=== PATIENT | male | born 1995 | race Caucasian/White ===

== ENCOUNTER 2020-03-30 13:50 | Emergency (ER) | payer OTHER ==
--- NOTE | 2020-03-30 13:52 | ED Physician Documentation ---
PD HPI CHEST PAIN - Stated complaint Stated Complaint: CHEST PX - History obtained from History obtained from: Patient - History of Present Illness Timing - onset: How many hours ago (06/01), Today Timing - onset during: Rest (The patient had been lingering in bed for the late morning and was just getting up at an hour and a half ago and had an onset of a brief sharp pain in the midsternal chest radiating to the back. Lasted several seconds and then went away. Occurred again a few minutes later. Now just a mild aching.) Timing - duration: Seconds Timing - details: Abrupt onset, Still present Quality: Aching, Sharp, Pain Location: Substernal Radiation: Back Associated symptoms: No: Shortness of air, Diaphoresis, Nausea, Feeling faint / dizzy Similar symptoms before: Has not had sx before Recently seen: Not recently seen Review of Systems Constitutional: denies: Fever, Chills Nose: denies: Rhinorrhea / runny nose, Congestion Throat: denies: Sore throat Respiratory: denies: Cough GI: denies: Nausea, Vomiting, Diarrhea Neurologic: denies: Focal weakness, Near syncope PD PAST MEDICAL HISTORY - Past Medical History Cardiovascular: None Respiratory: None Neuro: None Musculoskeletal: None - Present Medications Home Medications: Ambulatory Orders Medication Instructions Recorded Confirmed No Known Home Medications 03/30/20 03/30/20 - Allergies Allergies/Adverse Reactions: Allergies Allergy/AdvReac Type Severity Reaction Status Date / Time No Known Drug Allergies Allergy Verified 03/30/20 14:07 - Family History Family history: denies: CAD, Aortic aneursym, Aortic dissection PD ED PE NORMAL - Vitals Vital signs reviewed: Yes - General General: Alert and oriented X 3, No acute distress, Well developed/nourished - Neck Neck: Supple, no meningeal sign, No adenopathy - Cardiac Cardiac: RRR, No murmur - Respiratory Respiratory: Clear bilaterally, Other (no chestwall tenderness) - Abdomen Abdomen: Soft, Non tender - Derm Derm: Normal color, Warm and dry - Extremities Extremities: Normal ROM s pain, No edema, No calf tenderness / cord - Neuro Neuro: Alert and oriented X 3, No motor deficit, Normal speech Results - Vitals Vitals: Vital Signs - 24 hr 03/30/20 03/30/20 13:55 15:09 Temperature 36.5 C 37.0 C Heart Rate 97 80 Respiratory 18 18 Rate Blood Pressure 136/97 H 125/88 H O2 Saturation 100 100 Oxygen O2 Source Room air - EKG (time done) presentation Rhythm: NSR [place]: Normal Intervals: Normal PA QRS: Normal Ischemia: Normal ST segments. No: ST elevation c/w ischemia, ST depression - Labs Labs: Laboratory Tests 03/30/20 03/30/20 03/30/20 13:58 13:58 13:58 WBC 6.1 RBC 5.31 Hgb 16.2 Hct 45.4 MCV 85.5 MCH 30.5 MCHC 35.7 RDW 11.9 L Plt Count 326 MPV 9.0 Neut # (Auto) 3.8 Lymph # (Auto) 1.6 [place] # (Auto) 0.4 Eos # (Auto) 0.2 Baso # (Auto) 0.1 Absolute Nucleated RBC 0.00 Nucleated RBC % 0.0 Sodium 141 Potassium 4.1 Chloride 102 Carbon Dioxide 27 Anion Gap 12.0 BUN 13 Creatinine 1.1 Estimated GFR (MDRD) 82 L Glucose 105 H Calcium 9.7 Total Bilirubin 1.4 H AST 21 ALT 37 Alkaline Phosphatase 55 Troponin I High Sens < 2.3 L Total Protein 7.7 Albumin 4.6 Globulin 3.1 Albumin/Globulin Ratio 1.5 Lipase 25 - Rads (name of study) chest xray Radiology: Prelim report reviewed (normal exam), See rad report PD MEDICAL DECISION MAKING - ED course Complexity details: reviewed results, re-evaluated patient (no pain at this time), considered differential (Low risk for acute coronary syndrome. Will get EKG chest x-ray and lab to ensure no obvious inflammatory or other such cause.), d/w patient Departure - Departure Disposition: 01 Home, Self Care Clinical Impression: Chest pain Qualifiers: Chest pain type: precordial pain Qualified Code(s): R07.2 - Precordial pain Condition: Stable Record reviewed to determine appropriate education?: Yes Instructions: ED Chest Pain Atypical Unkn Cause Follow-Up: NATI Moreno [Provider Group] Comments: Your EKG, heart monitor, chest x-ray and blood tests are normal. No signs of significant/serious cause of your chest pain. Presume likely musculoskeletal. You can use some ibuprofen periodically if needed for pains. Recheck with your primary care or back here if other symptoms develop to suggest more serious process such as worse pain, shortness of breath, fever, cough, other concerns. Discharge Date/Time: 03/30/20 15:10
[2020-03-30] MEDS ORDERED: KETOROLAC 30 MG/ML VIAL IVP STA (14:19)
[2020-03-30 14:33] LABS: BASOPHILS # (AUTO) 0.1 10^3/uL (0.0-0.1); BASOPHILS % (AUTO) 1.2 %; EOSINOPHILS # (AUTO) 0.2 10^3/uL (0.0-0.7); EOSINOPHILS % (AUTO) 3.1 %; HGB - HEMOGLOBIN 16.2 g/dL (14.0-18.0); LYMPHOCYTES # (AUTO) 1.6 10^3/uL (1.5-3.5); LYMPHOCYTES % (AUTO) 26.1 %; MEAN CORPUSCULAR HEMOGLOBIN 30.5 pg (27.0-31.0); MEAN CORPUSCULAR HGB CONC 35.7 g/dL (32.0-36.0); MEAN CORPUSCULAR VOLUME 85.5 fL (80.0-94.0); MONOCYTES # (AUTO) 0.4 10^3/uL (0.0-1.0); MONOCYTES % (AUTO) 7.3 %; NEUTROPHILS # (AUTO) 3.8 10^3/uL (1.5-6.6); PLT - PLATELET COUNT 326 10^3/uL (130-450); RED BLOOD COUNT 5.31 10^6/uL (4.70-6.10); RED CELL DISTRIBUTION WIDTH 11.9 % (12.0-15.0); WHITE BLOOD COUNT 6.1 x10^3/uL (4.8-10.8)
[2020-03-30 14:41] LABS: ALBUMIN 4.6 g/dL (3.2-5.5); ALBUMIN/GLOBULIN RATIO 1.5 (1.0-2.2); BILIRUBIN,TOTAL 1.4 mg/dL (0.2-1.0); CALCIUM 9.7 mg/dL (8.5-10.3); CREATININE 1.1 mg/dL (0.6-1.2); TOTAL PROTEIN 7.7 g/dL (6.7-8.2)
--- NOTE | 2020-03-30 15:05 | XRAY Report ---
PROCEDURE: Chest 1 View X-Ray INDICATIONS: Chest Pain TECHNIQUE: One view of the chest was acquired. COMPARISON: None FINDINGS: Surgical changes and devices: None. Lungs and pleura: No pleural effusions or pneumothorax. Lungs are clear. Mediastinum: Mediastinal contours appear normal. Heart size is normal. Bones and chest wall: No suspicious bony lesions. Overlying soft tissues appear unremarkable. IMPRESSION: No acute cardiopulmonary disease process. Reviewed by: Yuliet Heller MD, PhD on 03/30/2020 3:03 PM PDT Approved by: Yuliet Heller MD, PhD on 03/30/2020 3:03 PM PDT Station ID: [id number]
[2020-03-30 15:10] VITALS: BP 125/88
== END 2020-03-30 15:10 | disposition home or self-care (01) ==
LOC: ED 13:50
DX: R07.2 Precordial pain (principal)
CPT/HCPCS: 36415; 71045; 80053; 83690; 84484; 85025; 93005; 96374; 99284